=== PATIENT | female | born 1990 | race Caucasian/White ===

== ENCOUNTER 2017-09-20 10:43 | Inpatient (IN) | payer BC ==
[~2017-09-20] VITALS: Ht 160 cm; Wt 56.8 kg
[2017-09-20] VITALS (30 sets, daily range): BP systolic 89–129; BP diastolic 50–82; PULSE 69–96; TEMP 98.5–99.9
[2017-09-20 12:19] LABS: HEMOGLOBIN 12.7 g/dl (12.5-16.0); MEAN CELL VOLUME 93 fl (80.0-100.0); MEAN CORPUSCULAR HEMOGLOBIN 32 pg (27.0-31.0); MEAN CORPUSCULAR HGB CONC 35 g/dl (33.0-37.0); MEAN PLATELET VOLUME 10.2 fl (7.4-10.4); PLATELET COUNT 316 K/mm3 (130-400); RED BLOOD COUNT 3.95 M/mm3 (4.10-5.30); REDCELL DISTRIBUTION WIDTH-CV 13.1 % (11.5-14.5)
[2017-09-20 12:26] LABS: HEMATOCRIT 36.8 % (37.0-47.0)
[2017-09-20 12:37] LABS: ALBUMIN 3.6 gm/dL (3.5-5.0); BILIRUBIN,TOTAL 0.4 mg/dL (0.0-1.0); CALCIUM 8.9 mg/dL (8.4-10.2); CREATININE, serum 0.55 mg/dL (0.52-1.25); TOTAL PROTEIN 6.9 gm/dL (6.4-8.2)
[2017-09-20 12:52] LABS: BAND 5 % (0-10); BASOPHIL 1 % (0-2); EOSINOPHIL 1 % (0-4); LYMPHOCYTE 21 % (20.0-51.0); METAMYELOCYTE 2 % (0-0); MYELOCYTE 2 % (0-0); NEUTROPHILS 62 % (42.0-75.2)
[2017-09-20 12:53] LABS: PLATELET ESTIMATE NORMAL (NORMAL)
[2017-09-20 13:08] LABS: THYROID STIMULATING HORMONE 2.43 uIU/mL (0.465-4.680)
[2017-09-20 23:54] LABS: RPR (VDRL) Non-reactive (())
[2017-09-21] VITALS (25 sets, daily range): BP systolic 85–136; BP diastolic 46–88; PULSE 68–111; TEMP 97.8–101.1
[2017-09-21] MEDS ORDERED: IBU600 MG PO (07:14)
[2017-09-21] MEDS ORDERED: PERCOCET 325 MG1 TA2 PO (07:14)
[2017-09-21 09:26] LABS: MEAN CELL VOLUME 92 fl (80.0-100.0); MEAN CORPUSCULAR HGB CONC 35 g/dl (33.0-37.0); PLATELET COUNT 265 K/mm3 (130-400); REDCELL DISTRIBUTION WIDTH-CV 12.8 % (11.5-14.5)
[2017-09-21 09:29] LABS: HEMATOCRIT 31.1 % (37.0-47.0); HEMOGLOBIN 10.8 g/dl (12.5-16.0); MEAN CORPUSCULAR HEMOGLOBIN 32 pg (27.0-31.0)
[2017-09-23 15:06] LABS: LUPUS ANTICOAGULANT INR 1.1 (()); LUPUS ANTICOAGULANT PT 12.3 sec (())
[2017-09-23 17:26] LABS: BETA-2 GPI IGG AABS <9.4 U/mL (()); BETA-2 GPI IGM AABS <9.4 U/mL (())
[2017-09-25 08:26] LABS: TOXOPLASMA AB, IGG Negative (Negative)
[2017-09-25 13:20] LABS: TOXOPLASMA AB, IGM Negative (Negative)
[2017-09-26 17:05] LABS: HSV 6 IGG 1:10 (()); HSV 6 IGM <1:20 (()); HSV 6 INTERPRETATION PAST INFECTION (())
== END 2017-09-21 13:15 | disposition home or self-care (01) | DRG 767 ==
LOC: LDRO 10:43 → LDR 11:04
PROVIDERS: Obstetrics & Gynecology; Student in an Organized Health Care Education/Training Program
PROC: 10E0XZZ Delivery of Products of Conception, External Approach (ICD-10-PCS; principal; 2017-09-20)
PROC: 10D17Z9 Manual Extraction of Products of Conception, Retained, Via Natural or Artificial Opening (ICD-10-PCS; 2017-09-20)
PROC: 3E033VJ Introduction of Other Hormone into Peripheral Vein, Percutaneous Approach (ICD-10-PCS; 2017-09-20)
DX: O36.4XX0 Maternal care for intrauterine death, not applicable or unspecified (principal); O75.2 Pyrexia during labor, not elsewhere classified; O73.0 Retained placenta without hemorrhage; O69.3XX0 Labor and delivery complicated by short cord, not applicable or unspecified; Z3A.21 21 weeks gestation of pregnancy; Z37.1 Single stillbirth
CPT/HCPCS: J0290; J1580; J2210; J2590; J2704; J7120